=== PATIENT | female | born 1950 | race Caucasian/White ===

== ENCOUNTER 2017-06-21 08:48 | Day surgery (SDC) | payer MEDICARE ==
[2017-06-18 16:11] VITALS: BMI 34.9
[~2017-06-21 08:48] MED LIST: LACTATED RINGERS 1,000 ML IV SCH
[2017-06-21 09:04] VITALS: TEMP 98.9
[2017-06-21] MEDS ORDERED: LIDOCAINE 1% INJ 10MG/ML (20 ML MDV) ONE (10:06)
[2017-06-21] MEDS ORDERED: PROPOFOL 10 MG/ML 20 ML VIAL IV ONE (10:06)
[2017-06-21] MEDS ORDERED: LABETALOL 5 MG/ML VIAL MDV ONE (10:06)
--- NOTE | 2017-06-21 10:24 | P.GSHP ---
History of Present Illness H&P Date: 06/21/17 Chief Complaint: Screening colonoscopy This is a 67-year-old female who presents today for screening colonoscopy. Patient denies any significant GI complaints. She has strong family history of colon cancer. Past Medical History Past Medical History: Hyperlipidemia, Hypertension History of Any Multi-Drug Resistant Organisms: None Reported Past Surgical History: Cholecystectomy, Orthopedic Surgery Additional Past Surgical History / Comment(s): torn meniscus left, right knee arthroscopy Past Anesthesia/Blood Transfusion Reactions: Postoperative Nausea & Vomiting ( PONV) Smoking Status: Never smoker - Past Family History Mother Family Medical History: No Reported History Sister(s) Family Medical History: Deep Vein Thrombosis (DVT) Additional Family Medical History / Comment(s): heart problems Medications and Allergies Home Medications Medication Instructions Recorded Confirmed Type Citalopram Hydrobromide [CeleXA] 20 mg PO QAM 06/04/14 06/18/17 History Lisinopril [Prinivil] 20 mg PO QAM 06/04/14 06/18/17 History Simvastatin [Zocor] 20 mg PO 06/04/14 06/21/17 History Aspirin [Adult Low Dose Aspirin EC] 81 mg PO DAILY 03/01/16 06/18/17 History Atenolol [Tenormin] 25 mg PO QAM 03/01/16 06/18/17 History Vit A/Vit C/Vit E/Zinc/Copper 1 cap PO DAILY 03/01/16 06/21/17 History [ICAPS SOFTGEL] Allergies Allergy/AdvReac Type Severity Reaction Status Date / Time No Known Allergies Allergy Verified 06/21/17 09:05 Surgical - Exam Vital Signs Temp Pulse Resp BP Pulse Ox 98.9 F 110 H 16 135/85 100 06/21/17 09:03 06/21/17 09:03 06/21/17 09:03 06/21/17 09:03 06/21/17 09:03 - General well developed, no distress - Eyes PERRL - ENT normal pinna - Neck no masses - Respiratory normal expansion - Cardiovascular Rhythm: regular - Abdomen Abdomen: soft, non tender Assessment and Plan Assessment: We will perform screening colonoscopy.
--- NOTE | 2017-06-21 10:41 | P.OP ---
Date of Procedure: 06/21/17 Preoperative Diagnosis: Screening colonoscopy Postoperative Diagnosis: Diverticulosis Anesthesia: MAC Surgeon: Naveen King Pathology: none sent Condition: stable Disposition: PACU Description of Procedure: Placed on the endoscopy table lateral position. She received IV sedation. Digital rectal exam was performed which revealed no abnormalities.. The flexible colonoscope was then placed patient anus passed throughout the entire colon. The ileocecal valve was visualized. The cecum, ascending and transverse colon appeared normal. In the descending and sigmoid colon there was moderate diverticular changes. There is no evidence of diverticulitis. The scope was then brought back the rectum and this appeared normal. The scope was withdrawn for patient.
[2017-06-21 11:01] VITALS: BP 134/87; PULSE 80; RESP 18
== END 2017-06-21 11:32 | disposition home or self-care (01) ==
LOC: ORWHC2ENDO 08:48
PROVIDERS: ATTEND Surgery
DX: Z12.11 Encounter for screening for malignant neoplasm of colon (principal); K57.30 Diverticulosis of large intestine without perforation or abscess without bleeding; Z80.0 Family history of malignant neoplasm of digestive organs; E78.5 Hyperlipidemia, unspecified; I10 Essential (primary) hypertension; Z79.82 Long term (current) use of aspirin; Z79.899 Other long term (current) drug therapy
CPT/HCPCS: J2001; J2704; G0105

== ENCOUNTER → 2017-07-25 | Outpatient (CLI) | payer MEDICARE ==
--- NOTE | 2017-07-26 14:27 | MM ---
Reason for exam: screening (asymptomatic). Last mammogram was performed 1 year and 6 months ago. History: Patient is postmenopausal. Family history of breast cancer in grandmother at age 78 and breast cancer in aunt at age 55. US breast aspiration single LT of the left breast, February 09, 2016. Physical Findings: A clinical breast exam by your physician is recommended on an annual basis and results should be correlated with mammographic findings. MG 3D Screening Mammo W/Cad Bilateral CC, MLO, and XCCL view(s) were taken. Prior study comparison: January 20, 2016, left breast MG 3d work up w/cad LT. January 13, 2016, bilateral MG 3d screening mammo w/cad. The breast tissue is almost entirely fat. No significant changes when compared with prior studies. ASSESSMENT: Benign, BI-RAD 2 RECOMMENDATION: Routine screening mammogram of both breasts in 1 year.
== END | disposition home or self-care (01) ==
LOC: RADMAMWWP 14:16
PROVIDERS: ATTEND Family Medicine
DX: Z12.31 Encounter for screening mammogram for malignant neoplasm of breast (principal)
CPT/HCPCS: 77063; 77067

== ENCOUNTER → 2018-04-29 | Outpatient (CLI) | payer MEDICARE ==
[2018-04-29 18:21] LABS: Anion Gap 7.4 mmol/L (4.00-12.00); Carbon Dioxide 29.6 mmol/L (21.6-31.8); Potassium 3.9 mmol/L (3.5-5.5)
== END | disposition home or self-care (01) ==
LOC: LABWHC1 09:38
PROVIDERS: ATTEND Internal Medicine Interventional Cardiology
DX: I10 Essential (primary) hypertension (principal)
CPT/HCPCS: 36415; 80051; 82565; 84520

== ENCOUNTER 2018-08-07 13:46 | Emergency (ER) | payer MEDICARE, OTHER ==
[2018-08-07 13:56] VITALS: TEMP 98.3
--- NOTE | 2018-08-07 14:28 | ED ---
Skin/Abscess/FB HPI - General Chief complaint: Skin/Abscess/Foreign Body Stated complaint: Rash on face and hands, abscess on armpit Time Seen by Provider: 08/07/18 14:03 Source: patient, RN notes reviewed Mode of arrival: ambulatory Limitations: no limitations - History of Present Illness Initial comments: 68-year-old female presents emergency Department with multiple complaints. Patient primary complains of rash on her hands, abscess in her left axilla and rash of her face. She states the hands have been ongoing for last few months she has been trying different creams with no relief. Patient noticed a red rash her face that is slightly raised and template. Patient states that it does burn and itch at times. Patient also states that she has an open draining abscess of her left axilla. Patient reports no fever no chills no new medications. - Related Data Home Medications Medication Instructions Recorded Confirmed Citalopram Hydrobromide [CeleXA] 20 mg PO QAM 06/04/14 06/18/17 Lisinopril [Prinivil] 20 mg PO QAM 06/04/14 06/18/17 Simvastatin [Zocor] 20 mg PO HS 06/04/14 06/21/17 Aspirin [Adult Low Dose Aspirin EC] 81 mg PO DAILY 03/01/16 06/18/17 Atenolol [Tenormin] 25 mg PO QAM 03/01/16 06/18/17 Vit A/Vit C/Vit E/Zinc/Copper 1 cap PO DAILY 03/01/16 06/21/17 [ICAPS SOFTGEL] Hydrochlorothiazide [Hydrodiuril] 25 mg PO DAILY 08/07/18 08/07/18 Previous Rx's Medication Instructions Recorded Cephalexin [Keflex] 500 mg PO Q8HR #21 cap 08/07/18 Triamcinolone 0.1% Cream [Kenalog 1 applicatio TOPICAL BID #30 gram 08/07/18 0.1% Cream] metroNIDAZOLE 0.75% CREAM 1 applic TOPICAL BID #45 gm 08/07/18 [Metrocream] Allergies Allergy/AdvReac Type Severity Reaction Status Date / Time No Known Allergies Allergy Verified 08/07/18 13:56 Review of Systems ROS Statement: Those systems with pertinent positive or pertinent negative responses have been documented in the HPI. ROS Other: All systems not noted in ROS Statement are negative. Past Medical History Past Medical History: Hyperlipidemia, Hypertension History of Any Multi-Drug Resistant Organisms: MRSA Date of last positivie culture/infection: 10/29/17 MDRO Source:: ARM Past Surgical History: Cholecystectomy, Orthopedic Surgery Additional Past Surgical History / Comment(s): torn meniscus left, right knee arthroscopy Past Anesthesia/Blood Transfusion Reactions: Postoperative Nausea & Vomiting (PONV) Past Psychological History: Depression Smoking Status: Never smoker - Past Family History Sister(s) Family Medical History: Pulmonary Embolus Mother Family Medical History: No Reported History General Exam Limitations: no limitations General appearance: alert, in no apparent distress Head exam: Present: atraumatic, normocephalic, normal inspection Eye exam: Present: normal appearance, PERRL, EOMI. Absent: scleral icterus, conjunctival injection, periorbital swelling ENT exam: Present: normal exam, normal oropharynx, mucous membranes moist, TM's normal bilaterally Neck exam: Present: normal inspection, full ROM. Absent: tenderness, meningismus, lymphadenopathy Respiratory exam: Present: normal lung sounds bilaterally. Absent: respiratory distress, wheezes, rales, rhonchi, stridor Cardiovascular Exam: Present: regular rate, normal rhythm, normal heart sounds. Absent: systolic murmur, diastolic murmur, rubs, gallop, clicks Skin exam: Present: warm, dry, intact, normal color, rash (Left axilla there is a 1 cm open draining abscess, mild erythema surrounding, mild tenderness. Neurovascular intact left arm. States there is a faint erythematous slightly papular rash primarily over the cheeks, nasal region. Bilateral hands really dry patchy rash on the dorsal aspect.) Course Vital Signs 08/07/18 13:54 Temperature 98.3 F Pulse Rate 73 Respiratory 16 Rate Blood Pressure 123/78 O2 Sat by Pulse 95 Oximetry Medical Decision Making - Medical Decision Making Patient is 68-year-old female For rashes, abscess. Patient will be started Keflex for abscess to her left axilla to apply warm compresses. Patient has dermatitis in her hands which will be started on Kenalog cream. Patient also has evidence of rosacea. Patient was started on metronidazole cream. Patient will follow-up with dermatology for recheck and return for any worsening symptoms. Disposition Clinical Impression: Atopic dermatitis, Rosacea, Abscess of left axilla Disposition: HOME SELF-CARE Condition: Stable Instructions (If sedation given, give patient instructions): Abscess (ED) Additional Instructions: Please return to the Emergency Department if symptoms worsen or any other concerns. Prescriptions: Cephalexin [Keflex] 500 mg PO Q8HR #21 cap Triamcinolone 0.1% Cream [Kenalog 0.1% Cream] 1 applicatio TOPICAL BID #30 gram metroNIDAZOLE 0.75% CREAM [Metrocream] 1 applic TOPICAL BID #45 gm Is patient prescribed a controlled substance at d/c from ED?: No Referrals: Emmanuel Benavides DO [Primary Care Provider] - 1-2 days Time of Disposition: 14:28
[2018-08-07 15:05] VITALS: BP 114/62; PULSE 61; RESP 18
== END 2018-08-07 15:00 | disposition home or self-care (01) ==
LOC: EC 13:46
DX: L20.9 Atopic dermatitis, unspecified (principal); L71.9 Rosacea, unspecified; L02.412 Cutaneous abscess of left axilla; E78.5 Hyperlipidemia, unspecified; I10 Essential (primary) hypertension; F32.9 Major depressive disorder, single episode, unspecified; Z79.82 Long term (current) use of aspirin; Z79.899 Other long term (current) drug therapy; Z86.14 Personal history of Methicillin resistant Staphylococcus aureus infection
CPT/HCPCS: 99282

== ENCOUNTER → 2018-08-28 | Outpatient (CLI) | payer MEDICARE, OTHER ==
--- NOTE | 2018-08-29 12:05 | MM ---
Reason for exam: screening (asymptomatic). Last mammogram was performed 1 year and 1 month ago. History: Patient is postmenopausal. Family history of breast cancer in grandmother at age 78 and breast cancer in aunt at age 55. US breast aspiration single LT of the left breast, February 09, 2016. Physical Findings: A clinical breast exam by your physician is recommended on an annual basis and results should be correlated with mammographic findings. MG 3D Screening Mammo W/Cad Bilateral CC, MLO, and XCCL view(s) were taken. Prior study comparison: July 25, 2017, bilateral MG 3d screening mammo w/cad. January 20, 2016, left breast MG 3d work up w/cad LT. There are scattered fibroglandular densities. Stable benign calcifications. There is no discrete abnormality. No significant changes when compared with prior studies. ASSESSMENT: Benign, BI-RAD 2 RECOMMENDATION: Routine screening mammogram of both breasts in 1 year.
== END ==
LOC: RADMAMWWP 14:47
PROVIDERS: ATTEND Family Medicine
DX: Z12.31 Encounter for screening mammogram for malignant neoplasm of breast (principal)
CPT/HCPCS: 77063; 77067

== ENCOUNTER → 2019-03-21 | Outpatient (CLI) | payer MEDICARE, OTHER ==
--- NOTE | 2019-03-21 11:50 | XR ---
EXAMINATION TYPE: XR foot limited RT DATE OF EXAM: 03/21/2019 CLINICAL HISTORY: Right foot pain TECHNIQUE: Frontal, lateral, and oblique images of the right foot are obtained. COMPARISON: None FINDINGS: There is no acute fracture/dislocation evident in the right foot. The joint spaces in the right foot appear aligned with mild narrowing of the distal interphalangeal joints and minimal bony productive change. The overlying soft tissue appears unremarkable. Small Achilles and plantar enthes ophytes are seen. IMPRESSION: 1. No acute fracture or dislocation in the right foot. 2. Small Achilles and plantar heel spurs. 3. Mild forefoot arthropathy.
== END | disposition home or self-care (01) ==
LOC: RADXRMAIN 11:23
PROVIDERS: ATTEND Nurse Practitioner Family
DX: M77.31 Calcaneal spur, right foot (principal); M19.072 Primary osteoarthritis, left ankle and foot

== ENCOUNTER 2019-06-13 10:58 | Emergency (ER) | payer MEDICARE, OTHER ==
[2019-06-13 11:07] VITALS: RESP 16; TEMP 97.7
[2019-06-13] MEDS ORDERED: KETOROLAC 30 MG/ML 1 ML VIAL IM STA (11:37)
--- NOTE | 2019-06-13 11:40 | ED ---
Lower Extremity Injury HPI - General Chief Complaint: Extremity Injury, Lower Stated Complaint: Fall/knee injury Time Seen by Provider: 06/13/19 11:16 Source: patient Mode of arrival: wheelchair Limitations: no limitations - History of Present Illness Initial Comments: Patient is 69-year-old female presenting to the emergency department with a chief complaint of left knee pain. Patient reports she was on a step stool in order to pick something up off the shelf. Patient reports she stepped back without knowing and she hyperextended her left knee. Patient reports pain with ambulation. Patient reports limited range of motion with flexion and states the only alleviating factor is keeping the leg fully extended. Patient denies taking any medication to alleviate the symptoms. Patient does have osteoarthritis and bilateral knees. Denies any numbness or tingling. - Related Data Home Medications Medication Instructions Recorded Confirmed Citalopram Hydrobromide [CeleXA] 20 mg PO QAM 06/04/14 08/07/18 Lisinopril [Prinivil] 20 mg PO QAM 06/04/14 08/07/18 Simvastatin [Zocor] 20 mg PO HS 06/04/14 08/07/18 Aspirin [Adult Low Dose Aspirin EC] 81 mg PO HS 03/01/16 08/07/18 Atenolol [Tenormin] 25 mg PO QAM 03/01/16 08/07/18 Vit A/Vit C/Vit E/Zinc/Copper 1 cap PO BID 03/01/16 08/07/18 [ICAPS SOFTGEL] Hydrochlorothiazide [Hydrodiuril] 25 mg PO DAILY 08/07/18 08/07/18 Previous Rx's Medication Instructions Recorded Cephalexin [Keflex] 500 mg PO Q8HR #21 cap 08/07/18 Triamcinolone 0.1% Cream [Kenalog 1 applicatio TOPICAL BID #30 gram 08/07/18 0.1% Cream] metroNIDAZOLE 0.75% CREAM 1 applic TOPICAL BID #45 gm 08/07/18 [Metrocream] Allergies Allergy/AdvReac Type Severity Reaction Status Date / Time No Known Allergies Allergy Verified 08/07/18 14:24 Review of Systems ROS Statement: Those systems with pertinent positive or pertinent negative responses have been documented in the HPI. ROS Other: All systems not noted in ROS Statement are negative. Past Medical History Past Medical History: Hyperlipidemia, Hypertension History of Any Multi-Drug Resistant Organisms: MRSA Date of last positivie culture/infection: 03/21/19 MDRO Source:: LT AXILLA Past Surgical History: Cholecystectomy, Orthopedic Surgery Additional Past Surgical History / Comment(s): torn meniscus left, right knee arthroscopy Past Anesthesia/Blood Transfusion Reactions: Postoperative Nausea & Vomiting (PONV) Past Psychological History: Depression Smoking Status: Never smoker Past Alcohol Use History: None Reported Past Drug Use History: None Reported - Past Family History Sister(s) Family Medical History: Pulmonary Embolus Mother Family Medical History: No Reported History General Exam Limitations: no limitations General appearance: alert, in no apparent distress Head exam: Present: atraumatic, normocephalic, normal inspection Eye exam: Present: normal appearance, PERRL, EOMI Pupils: Present: normal accommodation ENT exam: Present: normal exam, mucous membranes moist Neck exam: Present: normal inspection, full ROM Respiratory exam: Present: normal lung sounds bilaterally Cardiovascular Exam: Present: regular rate, normal rhythm, normal heart sounds Extremities exam: Present: normal inspection (No obvious trauma to the left knee. No surrounding erythema.), tenderness (Tenderness along the medial aspect of the left knee and the posterior aspect as well.), normal capillary refill, joint swelling (Mild left knee swelling), other. Absent: full ROM (Limited range of motion with knee flexion.), calf tenderness (Negative Homans) Back exam: Present: normal inspection, full ROM Neurological exam: Present: alert, oriented X3 Psychiatric exam: Present: normal affect, normal mood Skin exam: Present: warm, dry, intact, normal color Course Vital Signs 06/13/19 11:04 Temperature 97.7 F Pulse Rate 102 H Respiratory 16 Rate Blood Pressure 118/86 O2 Sat by Pulse 98 Oximetry Medical Decision Making - Medical Decision Making Patient is 69-year-old female presenting to the emergency department with chief complaint of left knee pain. Patient stepped back from a stepping stool causing hyperextension of the left knee. Patient does report pain and some swelling. On exam patient does have negative anterior drawer test and positive Isrrael with medial rotation. Patient does have pain with adulation limited range of motion with flexion. X-ray shows no acute fractures dislocations but does show moderate tricompartmental arthropathy especially evident the medial compartment. Small suprapatellar effusion evident as well. Patient already sees Dr. Regalado and would like to go see him. Knee extended applied. Patient will follow-up accordingly. Patient given Tylenol 3 starter pack for pain control. She was advised about the possible side effects of the medication. Patient advised to keep the leg elevated and apply ice compress to minimize symptoms. Strict return parameters were thoroughly discussed. Patient was understanding and agreeable. Case discussed with physician. Disposition Clinical Impression: Joint effusion of knee, Left knee pain, Left knee sprain Disposition: HOME SELF-CARE Condition: Stable Instructions (If sedation given, give patient instructions): Knee Pain (ED), Knee Sprain (ED) Additional Instructions: Please follow-up with your store specialist. Apply ice compress an alternate between Tylenol and Motrin for pain control. Keep the foot elevated to minimize symptoms. Return to emergency department if symptoms worsen. Is patient prescribed a controlled substance at d/c from ED?: No Referrals: Emmanuel Benavides DO [Primary Care Provider] - 1-2 days Time of Disposition: 12:40
--- NOTE | 2019-06-13 12:32 | XR ---
EXAMINATION TYPE: XR knee complete LT DATE OF EXAM: 06/13/2019 CLINICAL HISTORY: Left knee pain after fall TECHNIQUE: Three views of the left knee are obtained. COMPARISON: None. FINDINGS: There is no acute fracture/dislocation evident in left knee. The tri-compartment joint sp aces appear aligned with protuberant marginal osteophytes and medial compartment joint space narrowin g as well as patellofemoral compartment joint space narrowing. Small suprapatellar joint effusion is seen. There is diffuse osseous demineralization. The overlying soft tissue appears unremarkable. IMPRESSION: 1. No acute fracture or dislocation in the left knee. 2. Moderate tricompartmental arthropathy most severe in the medial compartment. 3. Diffuse osseous demineralization. 4. Small suprapatellar joint effusion.
[2019-06-13] MEDS ORDERED: ACET/COD 300 MG/30 MG STARTER PACK 6 TAB BTL PO STA (12:42)
[2019-06-13 12:58] VITALS: BP 112/81; PULSE 97
== END 2019-06-13 12:57 | disposition home or self-care (01) ==
LOC: EC 10:58
DX: S83.92XA Sprain of unspecified site of left knee, initial encounter (principal); M17.0 Bilateral primary osteoarthritis of knee; F32.9 Major depressive disorder, single episode, unspecified; E78.5 Hyperlipidemia, unspecified; I10 Essential (primary) hypertension; Z79.82 Long term (current) use of aspirin; Z79.899 Other long term (current) drug therapy; Z98.890 Other specified postprocedural states; Z86.14 Personal history of Methicillin resistant Staphylococcus aureus infection; W17.89XA Other fall from one level to another, initial encounter; Y93.89 Activity, other specified
CPT/HCPCS: 73562; 96372; 99283; L1830; J1885

== ENCOUNTER → 2019-06-24 | Outpatient (CLI) | payer MEDICARE, OTHER ==
--- NOTE | 2019-06-24 13:16 | MR ---
EXAMINATION TYPE: MR knee LT wo con DATE OF EXAM: 06/24/2019 COMPARISON: None HISTORY: Lt knee pain, fall 2 weeks ago TECHNIQUE: Multiplanar, multisequence images of the knee is performed without IV contrast. FINDINGS: MEDIAL MENISCUS: Tear anterior horn medial meniscus with displacement seen medially. Posterior horn i s intact. LATERAL MENISCUS: Anterior and posterior horns are intact without tear. CRUCIATE LIGAMENTS: There is increased signal and thinning of the ACL which may reflect partial ACL t ear. No evidence for ACL rupture. PCL is intact. COLLATERAL LIGAMENTS: The medial collateral ligament and lateral collateral ligament complex are inta ct and unremarkable. EXTENSOR MECHANISM: Visualized quadriceps and patellar tendons are intact. EFFUSION: Small suprapatellar joint effusion. POPLITEAL CYST: Mckeon's cyst measuring 4.9 cm in craniocaudal dimension. TRICOMPARTMENT SPACES: Moderate tricompartmental degenerative narrowing with associated spur formatio n. CARTILAGE: Intact BONE MARROW SIGNAL: No focal abnormal marrow signal is appreciated. OTHER: No additional significant abnormality is appreciated. IMPRESSION: 1. Tear and displacement anterior horn medial meniscus. 2. I cannot exclude partial tear ACL.
== END | disposition home or self-care (01) ==
LOC: RADMRIMAIN 11:36
PROVIDERS: ATTEND Orthopaedic Surgery
DX: S83.242A Other tear of medial meniscus, current injury, left knee, initial encounter (principal)

== ENCOUNTER → 2019-06-27 | Outpatient (CLI) | payer MEDICARE, OTHER ==
[2019-06-27 12:48] LABS: Basophils % (A) 1 %; Eosinophils # (A) 0.1 k/uL (0-0.7); Eosinophils % (A) 2 %; HCT 44.4 % (34.0-46.0); HGB 14.6 gm/dL (11.4-16.0); Lymphocytes # (A) 1.3 k/uL (1.0-4.8); Lymphocytes % (A) 24 %; MCH 30.8 pg (25.0-35.0); MCHC 32.9 g/dL (31.0-37.0); MCV 93.7 fL (80.0-100.0); Mean Platelet Volume 7.5; Monocytes # (A) 0.3 k/uL (0-1.0); Monocytes % (A) 6 %; Neutrophils # (A) 3.4 k/uL (1.3-7.7); Neutrophils % (A) 64 %; Platelet Count 327 k/uL (150-450); RBC 4.74 m/uL (3.80-5.40); RDW 12.3 % (11.5-15.5); WBC 5.2 k/uL (3.8-10.6)
[2019-06-27 13:07] LABS: Potassium 3.6 mmol/L (3.5-5.1)
== END | disposition home or self-care (01) ==
LOC: LABPAT 12:23
PROVIDERS: ATTEND Orthopaedic Surgery
DX: Z01.818 Encounter for other preprocedural examination (principal); Z01.812 Encounter for preprocedural laboratory examination; M23.92 Unspecified internal derangement of left knee
CPT/HCPCS: 36415; 80051; 85025; 93005

== ENCOUNTER 2019-07-17 13:29 | Day surgery (SDC) | payer MEDICARE, OTHER ==
[2019-07-15 15:36] VITALS: BMI 34.9
--- NOTE | 2019-07-16 14:27 | HP ---
HISTORY AND PHYSICAL DATE OF SURGERY: 07/17/2019 Marisol Arciniega is a 69-year-old patient seen with progressive left knee pain. We discussed options for treatment. She elected to proceed with arthroscopy. Consent was obtained. PAST MEDICAL HISTORY: Hypertension, hyperlipidemia. PAST SURGICAL HISTORY: Knee arthroscopy. DAILY MEDICATIONS: Aspirin, Celexa, lisinopril, Simvastatin. ALLERGIES: None. SOCIAL HISTORY: She denies tobacco use. PHYSICAL EVALUATION OF THE LEFT KNEE: Her range of motion is 0 to 90. There is a mild to moderate effusion present. She is tender along the medial and lateral joint lines. Positive medial Isrrael's. Ligaments are stable. Hip rotation without pain. Distal neurovascular exam is intact. RADIOGRAPHS: Left knee radiographs revealed moderate tricompartment osteoarthritis. Left knee MRI revealed medial meniscal tear, osteoarthritis, joint effusion. IMPRESSION: 1. Internal derangement of the left knee with medial meniscal tear. 2. Left knee osteoarthritis. 3. Hypertension. 4. Hyperlipidemia. PLAN: Left knee arthroscopy with partial meniscectomy, partial synovectomy, and debridement. MMODL / IJN: [id number] /
[~2019-07-17 13:29] MED LIST changes: +DEXAMETHASONE SOD PHOSPHATE 10 MG/ML 1 ML VIAL IV ONE; +LIDOCAINE 1% (10MG/ML) FOR IV START INTRADERMA PRN; +MIDAZOLAM 2 MG/2 ML VIAL IV PRN; +fentaNYL (PF) 50 MCG/ML 2 ML AMP IV PRN; +fentaNYL (PF) 50 MCG/ML 2 ML AMP IVP PRN
[2019-07-17 14:04] VITALS: TEMP 97.8
[2019-07-17] MEDS ORDERED: ONDANSETRON 4 MG/2 ML VIAL IVP ONE (14:05)
[2019-07-17] MEDS ORDERED: fentaNYL (PF) 50 MCG/ML 2 ML AMP ONE (16:56)
[2019-07-17] MEDS ORDERED: MIDAZOLAM 2 MG/2 ML VIAL ONE (16:56)
[2019-07-17] MEDS ORDERED: PROPOFOL 10 MG/ML 20 ML VIAL IV ONE (16:56)
[2019-07-17] MEDS ORDERED: LIDOCAINE 1% INJ 10MG/ML (20 ML MDV) ONE (16:56)
[2019-07-17] MEDS ORDERED: BUPIVACAINE (PF) 0.25% 30 ML VIAL INTRAARTIC ONE (16:58)
--- NOTE | 2019-07-17 17:43 | P.OP ---
Date of Procedure: 07/17/19 Preoperative Diagnosis: Internal derangement left knee Postoperative Diagnosis: 1. Tear medial meniscus left knee 2. 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 Grade 3/4 chondromalacia lateral femoral condyle left knee 3. 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 Reactive synovitis medial, lateral and suprapatellar compartments left knee Procedure(s) Performed: 1. Arthroscopic partial medial meniscectomy left knee 2. Arthroscopic chondroplasty medial femoral condyle left knee 3. Arthroscopic chondroplasty lateral femoral condyle left knee 4. Arthroscopic chondroplasty femoral sulcus left knee 5. Arthroscopic partial synovectomy medial, lateral and suprapatellar compartments left knee Anesthesia: NIKA, local Surgeon: Dixon Regalado Estimated Blood Loss (ml): 7 Pathology: none sent Condition: stable Disposition: PACU Indications for Procedure: 69-year-old patient seen with progressive left knee pain. After having treatment options discussed, she elected post with arthroscopy. Operative Findings: See description of procedure Description of Procedure: Patient was taken to the operative suite. Patient underwent a general anesthetic by the department of anesthesia. Patient was given preoperative antibiotics. The left lower extremity was placed in a well-padded arthroscopic leg mendoza. The left leg was prepped and draped in the normal sterile orthopedic fashion. A lateral parapatellar and suprapatellar incision was made. Trochars were inserted. Arthroscopy was initiated. Suprapatellar pouch revealed diffuse thick reactive synovitis. The patellofemoral joint appeared to articulate congruently. There was grade 3/4 chondromalacia of the femoral sulcus and grade 3 chondromalacia changes of the patella.. The scope was guided into the medial gutter. No loose bodies or plica were identified. The scope was then guided into the medial compartment. A medial parapatellar incision was made. Trocar inserted followed by probe. There was a radial tear of the pos terior medial meniscus. There were grade 4 chondromalacia changes of both the medial femoral condyle and tibial plateau. There was some osteochondral tears involving the femoral condyle. There was thick reactive synovitis anteriorly. I performed a partial medial meniscectomy. I performed a chondroplasty of the medial femoral condyle. I performed a partial synovectomy decompressing the thick reactive synovitis. The residual meniscus was stable. There was good decompression of synovitis. The residual osteochondral surface of the medial femoral condyle was stable. Scope and probe were then guided into the intercondylar notch. Cruciates were identified, probed and found to be stable. The scope and probe were then guided into lateral compartment. The lateral femoral condyle revealed a central area of grade 3/4 chondromalacia with some peripheral osteochondral tears. There was thick reactive synovitis anteriorly. There was some mild fraying of the midbody lateral meniscus. I performed a chondroplasty of the lateral femoral condyle. I debrided that mild fraying of the meniscus. I performed a partial synovectomy decompressing reactive synovitis. The residual osteochondral surface was stable. There was good decompression of synovitis. The scope was in guided back into the suprapatellar compartment. I introduced a motorized shaver into the suprapatellar compartment. I debrided some piecemeal fragments of meniscus I encountered. I performed a chondroplasty of the femoral sulcus. I performed a partial synovectomy decompressing reactive synovitis. The shaver was removed. I took one more look on the entire knee, no residual debris. Instruments were now removed from the joint. The joint was infiltrated with .25% Marcaine. Steri- Strips were applied to the portal sites. Sterile dressings were applied. The patient was placed into a XOCHITL hose. No tourniquet was utilized. The patient was awakened, transferred to a bed and taken to recovery stable satisfactory condition.
[2019-07-17] MEDS ORDERED: ALBUTEROL NEBULIZED 1.25 MG/3 ML INHALATION ONE (17:54)
[2019-07-17] MEDS ORDERED: METOPROLOL TARTRATE 5 MG/5 ML VIAL IVP ONE ×2 (18:15→18:20)
[2019-07-17] MEDS ORDERED: LACTATED RINGERS 1,000 ML IV ONE (18:28)
[2019-07-17 18:57] VITALS: PULSE 98; RESP 20
[2019-07-17 18:58] VITALS: BP 122/77
== END 2019-07-17 19:09 | disposition home or self-care (01) ==
LOC: OR 13:29
PROVIDERS: ATTEND Orthopaedic Surgery
DX: M23.322 Other meniscus derangements, posterior horn of medial meniscus, left knee (principal); M22.42 Chondromalacia patellae, left knee; M17.12 Unilateral primary osteoarthritis, left knee; M65.862 Other synovitis and tenosynovitis, left lower leg; I10 Essential (primary) hypertension; E78.5 Hyperlipidemia, unspecified; Z79.82 Long term (current) use of aspirin; Z79.899 Other long term (current) drug therapy
CPT/HCPCS: 29881; J2250; J1100; J0690; J2405; J2001; J3010; J2704

== ENCOUNTER → 2021-05-19 | Outpatient (CLI) | payer MEDICARE, OTHER ==
--- NOTE | 2021-05-23 09:31 | MM ---
Reason for exam: screening (asymptomatic). Last mammogram was performed 2 years and 9 months ago. History: Patient is postmenopausal. Family history of breast cancer in grandmother at age 78 and breast cancer in aunt at age 55. US breast aspiration single LT of the left breast, February 09, 2016. Physical Findings: A clinical breast exam by your physician is recommended on an annual basis and results should be correlated with mammographic findings. MG 3D Screening Mammo W/Cad Bilateral CC and MLO view(s) were taken. Prior study comparison: August 28, 2018, bilateral MG 3d screening mammo w/cad. July 25, 2017, bilateral MG 3d screening mammo w/cad. There are scattered fibroglandular densities. Scattered benign bilateral oil cyst calcifications. No significant changes when compared with prior studies. ASSESSMENT: Benign, BI-RAD 2 RECOMMENDATION: Routine screening mammogram of both breasts in 1 year.
== END | disposition home or self-care (01) ==
LOC: RADMAMWWP 09:49
PROVIDERS: ATTEND Family Medicine
DX: Z12.31 Encounter for screening mammogram for malignant neoplasm of breast (principal); Z80.3 Family history of malignant neoplasm of breast; Z78.0 Asymptomatic menopausal state
CPT/HCPCS: 77063; 77067

== ENCOUNTER → 2021-05-27 | Outpatient (CLI) | payer MEDICARE, OTHER ==
[2021-05-27 15:19] LABS: ALT 14 U/L (8-44); AST 18 U/L (13-35); Chol/HDL Ratio 2.03 Ratio; VLDL Calculation 19.44 mg/dL (5.00-40.00)
== END | disposition home or self-care (01) ==
LOC: LABWHC1 09:11
PROVIDERS: ATTEND Internal Medicine Interventional Cardiology
DX: E78.2 Mixed hyperlipidemia (principal)
CPT/HCPCS: 36415; 80061; 84450; 84460

== ENCOUNTER 2021-07-26 09:07 | Emergency (ER) | payer MEDICARE, OTHER ==
[2021-07-26 09:22] VITALS: BP 153/81; PULSE 88; RESP 18; TEMP 98.4
[2021-07-26] MEDS ORDERED: CIPROFLOXACIN-DEXAMETH 0.3-0.1% DROPS 7.5 ML BTL LEFT EAR STA (11:36)
--- NOTE | 2021-07-26 11:49 | ED ---
ENT HPI - General Chief complaint: ENT Stated complaint: Lt Ear Pain/Swelling Time Seen by Provider: 07/26/21 11:20 Source: patient Mode of arrival: ambulatory Limitations: no limitations - History of Present Illness Initial comments: [id number] female with a history of hypertension presents with chief complaint of left ear pain. For about 4 days the ear has been becoming increasingly more swollen and painful. She notes tenderness of the tragus and pain with eating and opening and closing the jaw. She wears hearing aids and is unable to fit her left hearing aid in the ear due to the swelling and pain. She has noticed some clear drainage occasionally. Tylenol helps decrease the pain. He denies purulent discharge, history of diabetes, redness and swelling behind the ear, fever, chills, headache, vision changes, nausea, vomiting, chest pain, shortness of breath, abdominal pain. MD complaint: ear pain - Related Data Home Medications Medication Instructions Recorded Confirmed Citalopram Hydrobromide [CeleXA] 20 mg PO QAM 06/04/14 07/15/19 Simvastatin [Zocor] 20 mg PO HS 06/04/14 07/15/19 lisinopriL [Prinivil] 20 mg PO QAM 06/04/14 07/15/19 Aspirin [Adult Low Dose Aspirin EC] 81 mg PO HS 03/01/16 07/15/19 Vit A/Vit C/Vit E/Zinc/Copper 1 cap PO BID 03/01/16 07/15/19 [ICAPS SOFTGEL] hydroCHLOROthiazide [Hydrodiuril] 25 mg PO DAILY 08/07/18 07/15/19 Previous Rx's Medication Instructions Recorded HYDROcodone/APAP 5-325MG [[place] 1 tab PO Q6HR PRN 7 Days #28 tab 07/17/19 5-325] Ciprofloxacin-Dexameth [Ciprodex 4 drops LEFT EAR BID 10 Days #7.5 07/26/21 Otic Susp] ml Allergies Allergy/AdvReac Type Severity Reaction Status Date / Time No Known Allergies Allergy Verified 07/26/21 09:22 Review of Systems ROS Statement: Those systems with pertinent positive or pertinent negative responses have been documented in the HPI. ROS Other: All systems not noted in ROS Statement are negative. Past Medical History Past Medical History: Hyperlipidemia, Hypertension History of Any Multi-Drug Resistant Organisms: MRSA Date of last positivie culture/infection: 03/21/19 MDRO Source:: LT AXILLA Past Surgical History: Cholecystectomy, Orthopedic Surgery Additional Past Surgical History / Comment(s): torn meniscus left, right knee arthroscopy Past Anesthesia/Blood Transfusion Reactions: Postoperative Nausea & Vomiting (PONV) Past Psychological History: Depression Smoking Status: Never smoker Past Alcohol Use History: None Reported - Past Family History Sister(s) Family Medical History: Pulmonary Embolus Mother Family Medical History: Coronary Artery Disease (CAD) General Exam Limitations: no limitations General appearance: alert, in no apparent distress Head exam: Present: atraumatic, normocephalic, normal inspection Eye exam: Present: normal appearance, PERRL, EOMI. Absent: scleral icterus, conjunctival injection, periorbital swelling ENT exam: Present: mucous membranes moist Expanded TM/Canal exam: Canal Tenderness: Left TM (Right tympanic membrane is WNL. Left tympanic membrane is not visualized due to swelling. There is tragal tenderness and tenderness when inserting the otoscope. No mastoid tenderness or erythema. Discharge noted) Mouth exam: Present: other (Pain radiating to the ear with open and close of jaw). Absent: trismus Neck exam: Present: normal inspection. Absent: tenderness, lymphadenopathy Respiratory exam: Present: normal lung sounds bilaterally. Absent: respiratory distress, wheezes, rales, rhonchi, stridor Cardiovascular Exam: Present: regular rate, normal rhythm, normal heart sounds. Absent: systolic murmur, diastolic murmur, rubs, gallop, clicks Neurological exam: Present: alert, oriented X3, CN II-XII intact Psychiatric exam: Present: normal affect, normal mood Skin exam: Present: warm, dry, intact, normal color. Absent: rash Course Vital Signs 07/26/21 09:18 Temperature 98.4 F Pulse Rate 88 Respiratory 18 Rate Blood Pressure 153/81 O2 Sat by Pulse 95 Oximetry Medical Decision Making - Medical Decision Making Patient is a 71-year-old female sent in with a chief complaint of left ear pain. Began 4 days ago and ear has become increasingly more painful and swollen. Unable to wear her hearing aid due to the pain. She does not have a history of diabetes. On exam the ear canal and tragus are tender for palpation and insertion of the otoscope. Tympanic membrane is not visualized due to swelling. There is no mastoid erythema or tenderness. An ear wick was inserted and patient was given first dose of Ciprodex drops here in the ER. Prescribed Ciprodex drops 4 drops 2 times a day for 10 days, sent to pharmacy on file. May take Motrin and Tylenol as needed for pain control. Follow-up with PCP in one to 2 days. Educated on return parameters. Report back to ER with worsening symptoms or new onset alarm symptoms. Answered all questions. Patient conveyed verbal understanding and agreed to the plan. My attending is Dr. Dos Santos. Disposition Clinical Impression: Otitis externa Disposition: HOME SELF-CARE Condition: Good Instructions (If sedation given, give patient instructions): Swimmer's Ear (ED), Earache (ED) Additional Instructions: Take medication as prescribed. Follow-up with ENT if needed. With PCP in one to 2 days. Take Motrin and Tylenol as needed for pain relief. Report back to ER with worsening symptoms or new onset alarming symptoms. Prescriptions: Ciprofloxacin-Dexameth [Ciprodex Otic Susp] 4 drops LEFT EAR BID 10 Days #7.5 ml Is patient prescribed a controlled substance at d/c from ED?: No Referrals: Emmanuel Benavides DO [Primary Care Provider] - 1-2 days Jessee Escalante MD [STAFF PHYSICIAN] - 1-2 days Time of Disposition: 12:04
== END 2021-07-26 12:05 | disposition home or self-care (01) ==
LOC: EC 09:07
DX: H60.92 Unspecified otitis externa, left ear (principal); I10 Essential (primary) hypertension; E78.5 Hyperlipidemia, unspecified; F32.A Depression, unspecified; Z79.82 Long term (current) use of aspirin; Z79.899 Other long term (current) drug therapy
CPT/HCPCS: 99282

== ENCOUNTER → 2022-02-13 | Outpatient (CLI) | payer MEDICARE, OTHER | END | disposition home or self-care (01) | LOC: LABWHC1 12:12 | PROVIDERS: ATTEND Orthopaedic Surgery | DX: Z01.812 Encounter for preprocedural laboratory examination (principal); Z22.322 Carrier or suspected carrier of Methicillin resistant Staphylococcus aureus; M17.11 Unilateral primary osteoarthritis, right knee | CPT/HCPCS: 87070 ==

== ENCOUNTER 2022-03-20 08:03 | Day surgery (SDC) | payer MEDICARE, OTHER ==
[2022-03-16 13:48] VITALS: BMI 34.2
--- NOTE | 2022-03-19 12:50 | HP ---
HISTORY AND PHYSICAL DATE OF SCHEDULED SURGERY: 03/20/2022. HISTORY OF PRESENT ILLNESS: Marisol Arciniega is a 72-year-old patient seen with symptomatic right knee osteoarthritis. We discussed options for treatment. She elected to proceed with right total knee arthroplasty. Consent was obtained. Medical clearance was provided by Dr. Emmanuel Benavides. PAST MEDICAL HISTORY: Hypertension, hyperlipidemia. PAST SURGICAL HISTORY: Knee arthroscopy. DAILY MEDICATIONS: 1. Celexa. 2. Lisinopril. 3. Simvastatin. ALLERGIES: None. SOCIAL HISTORY: She denies tobacco use. PHYSICAL EVALUATION OF THE RIGHT KNEE: Range of motion is -4/5 to 85. Mild effusion. Tenderness medial joint line. Crepitus along the medial patellofemoral compartments with range of motion. Pain with patellofemoral compression. Ligaments stable. Hip rotation without pain. Distal neurovascular exam intact. RADIOGRAPHS: Right knee radiographs reveal severe osteoarthritic changes. IMPRESSION: 1. Right knee osteoarthritis. 2. Hypertension. 3. Hyperlipidemia. PLAN: Right total knee arthroplasty. MMODL / IJN: [id number] /
[~2022-03-20 08:03] MED LIST changes: +ACETAMINOPHEN TAB 500 MG TAB PO PRN; -DEXAMETHASONE SOD PHOSPHATE 10 MG/ML 1 ML VIAL IV ONE; -LACTATED RINGERS 1,000 ML IV SCH; -LIDOCAINE 1% (10MG/ML) FOR IV START INTRADERMA PRN; +MELOXICAM 7.5 MG TAB PO PRN; -MIDAZOLAM 2 MG/2 ML VIAL IV PRN; +TRANEXAMIC ACID IN NACL,ISO-OS 1,000 MG in SALINE 1 100ML.BAG IVPB PRN; +VANCOMYCIN 1,500 MG in SODIUM CHLORIDE 0.9% 500 ML 500 ML IVPB PRN; -fentaNYL (PF) 50 MCG/ML 2 ML AMP IV PRN; -fentaNYL (PF) 50 MCG/ML 2 ML AMP IVP PRN
[2022-03-20] MEDS ORDERED: ONDANSETRON 4 MG/2 ML VIAL ONE (08:50)
[2022-03-20] MEDS ORDERED: ONDANSETRON 4 MG/2 ML VIAL IVP ONE (09:05)
[2022-03-20] MEDS ORDERED: DEXAMETHASONE SOD PHOSPHATE 4 MG/ML 1 ML VIAL IVP ONE (09:06)
[2022-03-20] MEDS ORDERED: LACTATED RINGERS 1,000 ML IV ONE ×2 (09:10→11:30)
[2022-03-20] MEDS ORDERED: MIDAZOLAM 2 MG/2 ML VIAL IVP ONE (09:16)
--- NOTE | 2022-03-20 09:37 | P.ANPRN ---
Procedure Note - Anesthesia - Nerve Block Performed Right Adductor Canal Infusion Time Out Performed: Yes Date of Procedure: 03/20/22 Procedure Start Time: :15 Procedure Stop Time: :24 Location of Patient: PreOp Indication: Requested by Surgeon Sedation Type: Sedate with meaningful contact maintained Preparation: Sterile Prep, Sterile Dressing Position: Supine Catheter: Indwelling Needle Types: Pajunk Needle Gauge: 18 Ultrasound used to visualize needle placement: Yes Ultrasound used to observe medication spread: Yes Injectate: 0.5% Ropivacaine (see comment for volume) (15 ml +10 ml NS) Blood Aspirated: No Pain Paresthesia on Injection Noted: No Resistance on Injection: Normal Image Stored and Saved: Yes Events: Uneventful and Well Tolerated
[2022-03-20] MEDS ORDERED: ROPIVACAINE 0.2%-NS ON-Q PUMP 1,090 MG, EMPTY PAIN BALL 1 EACH MISCELLANE PRN (09:38)
--- NOTE | 2022-03-20 09:38 | P.ANPRN ---
Procedure Note - Anesthesia - Nerve Block Performed Right iPack Single Time Out Performed: Yes Date of Procedure: 03/20/22 Procedure Start Time: : Procedure Stop Time: :32 Location of Patient: PreOp Indication: Requested by Surgeon Sedation Type: Sedate with meaningful contact maintained Preparation: Sterile Prep Position: Left Lateral Needle Types: Pajunk Needle Gauge: 21 Ultrasound used to visualize needle placement: Yes Ultrasound used to observe medication spread: Yes Injectate: 0.5% Ropivacaine (see comment for volume) (15 ml + 10 ml NS) Blood Aspirated: No Pain Paresthesia on Injection Noted: No Resistance on Injection: Normal Image Stored and Saved: Yes Events: Uneventful and Well Tolerated
[2022-03-20] MEDS ORDERED: PROPOFOL 10 MG/ML 20 ML VIAL IV ONE (09:40)
[2022-03-20] MEDS ORDERED: ROPIVACAINE 5 MG/ML 30 ML VIAL ONE (09:40)
[2022-03-20] MEDS ORDERED: KETAMINE 10 MG/ML 20 ML VIAL ONE (09:40)
[2022-03-20] MEDS ORDERED: HYDROmorphone (PF) 1 MG/ML ONE (09:40)
[2022-03-20] MEDS ORDERED: TRANEXAMIC ACID IN NACL,ISO-OS 1,000 MG/100 ML BAG ONE (09:40)
[2022-03-20] MEDS ORDERED: fentaNYL (PF) 50 MCG/ML 2 ML AMP ONE (09:40)
[2022-03-20] MEDS ORDERED: SODIUM CHLORIDE 0.9% (PF) 10 ML VIAL ONE (09:40)
[2022-03-20] MEDS ORDERED: MIDAZOLAM 2 MG/2 ML VIAL ONE (09:40)
[2022-03-20] MEDS ORDERED: LABETALOL 5 MG/ML VIAL MDV ONE (09:40)
[2022-03-20] MEDS ORDERED: GLYCOPYRROLATE 0.2 MG/ML 2 ML VIAL ONE (09:40)
[2022-03-20] MEDS ORDERED: ceFAZolin 1,000 MG in SODIUM CHLORIDE 0.9% 1,000 ML IRRIGATION ONE (10:14)
[2022-03-20] MEDS ORDERED: HYDROcodone/APAP 5-325MG 1 EACH TAB PO PRN (11:45)
[2022-03-20] MEDS ORDERED: HYDROmorphone 0.5 MG/0.5 ML SYRINGE IVP PRN ×3 (11:45)
[2022-03-20] MEDS ORDERED: ONDANSETRON 4 MG/2 ML VIAL IVP PRN (11:45)
[2022-03-20] MEDS ORDERED: NALOXONE 0.4 MG/ML 1 ML VIAL IV PRN (11:45)
--- NOTE | 2022-03-20 11:45 | P.OP ---
Date of Procedure: 03/20/22 Preoperative Diagnosis: Right knee osteoarthritis Postoperative Diagnosis: Right knee osteoarthritis Procedure(s) Performed: Right total knee arthroplasty Implants: 1. Depuy attune size 5 right cruciate retaining cemented femur 2. Depuy attune size 5 fixed bearing cemented tibial baseplate 3. Depuy attune size 5 fixed bearing cruciate retaining 5 mm polyethylene tibial insert 4. Depuy attune 35mm all polyethylene cemented patella Anesthesia: regional (Adductor canal catheter, Ipack block), spinal Surgeon: Dixon Regalado Mail Sorting Supervisor #1: Tavares Cueva Estimated Blood Loss (ml): 70 Pathology: none sent (Bone) Condition: stable Disposition: PACU Indications for Procedure: 72-year-old patient seen with symptomatic right knee osteoarthritis. After treatment options were discussed with her, she elected to proceed with total knee arthroplasty. Operative Findings: See description of procedure Description of Procedure: Patient was taken to the operative suite after having an adductor canal catheter placed by the department of anesthesia. Patient underwent a spinal anesthetic by the department of anesthesia. Patient was given preoperative IV intake antibiotics and TXA. A well-padded tourniquet was placed about the right lower extremity. The lower extremity was then prepped and draped in the normal sterile orthopedic fashion. The extremity was elevated, a tourniquet was insufflated to 300. A standard anterior incision was made sharply through skin. Dissection was taken down through the subcutaneous soft tissues down to the extensor mechanism. A medial arthrotomy was performed, patella was everted and knee was flexed. There was advanced osteoarthritis noted. I introduced my distal intramedullary femoral drill. I then introduced the distal femoral cutting jig. Govind SHAFFER secured the cutting jig with 2 pins. I held retractors in position while Govind SHAFFER performed the distal femoral resection through the guide area we now removed her distal femoral cutting guide. We now placed our 4-in-1 femoral cutting block and positioned and it was secured with 2 pins by Govind SHAFFER while I held the block in position. The distal femoral finishing was now completed. A proximal tibial cutting guide was positioned. I held the guide in the appropriate position with both hands well Govind SHAFFER inserted stabilizing pins into the guide. Proximal tibial cut was made. We now placed a trial femoral component into position, along with an appropriate size tibial tray and insert. We now took the knee through range of motion and had full extension good flexion and good overall soft tissue balance noted. The patella was everted and stabilized with 2 towel clips held by Govind SHAFFER while I performed a flush with patellar quad tendon utilizing a fresh sawblade. We templated the patella, appropriate drill holes were made. An appropriate trial patella was positioned, knee was taken through full range of motion with the patella tracking very nicely. The trial patella was removed. Drill holes were made through the femoral component. All trial components were removed after marking off the appropriate rotation of the tibia. Retractors were now positioned along the proximal tibia. An appropriate keel punch was made with the appropriate size tibial guide by myself on Govind SHAFFER assisted by holding retractors. At this point appropriate size implants were chosen and opened. The joint was irrigated copiously with pulse lavage mechanical irrigation. The wound was irrigated with pulse lavage mechanical irrigation. We mixed antibiotic methylmethacrylate. We placed the knee into flexion. We placed multiple retractors assisted by Govind SHAFFER to expose the proximal tibia. Once the methyl methacrylate was ready, the tibial component was cemented into place removing any excess methylmethacrylate form by both myself and Govind SHAFFER. The femoral component was cemented into place removing the removing any excess methylmethacrylate performed by both myself and Govind SHAFFER. We then inserted the appropriate size polyethylene tibial insert. We made sure that it was locked into position. We took the knee into full extension, and then back in a flexion making sure we had removed any excess methylmethacrylate. The patellar component was then cemented down and secured with clamp. Excess methylmethacrylate removed. We kept the knee in full extension, patellar clamp in position until methylmethacrylate had hardened. Once it had hardened the patellar clamp was removed. The knee was taken through full range of motion. The patella tracked nicely. There was good soft tissue balancing. The tourniquet was now released. Additional hemostasis was achieved via electrocautery. A second gram of TXA was given. The wound again was irrigated with pulse lavage mechanical irrigation. The extensor mechanism was repaired with Ethibond suture. We checked the repair with range of motion and it was stable. The subcutaneous soft tissues were repaired with Vicryl in layers. The skin was approximated with pernio/Dermabond. Sterile dressings were applied followed by loose web roll and Loyd bandage. The patient was transferred to a bed, and taken to recovery in stable and satisfactory condition. Govind SHAFFER assisted with this complex procedure.
--- NOTE | 2022-03-20 12:40 | XR ---
EXAMINATION TYPE: XR knee limited RT DATE OF EXAM: 03/20/2022 12:32 PM INDICATION: Patient age:Female; 72 years old; Reason for study: Evaluation for Postop abnormality and alignment; PHH. COMPARISON: None TECHNIQUE: The Right knee(s) was examined in frontal and lateral projections. FINDINGS: Post surgical changes from right total knee arthroplasty with distal femoral and proximal tibial components. Hardware appears intact with appropriate alignment. There is associated soft tiss ue gas and edema. Midline anterior skin jose identified. No acute fracture or dislocation. IMPRESSION: Postsurgical changes from right total knee arthroplasty. Hardware appears intact with appropriate ali gnment.
[2022-03-20] MEDS: SODIUM CHLORIDE 0.9% 1,000 ML IV SCH (15:29)
[2022-03-20] MEDS ORDERED: SENNOSIDES-DOCUSATE SODIUM 1 EACH TAB PO SCH (21:00)
[2022-03-20] MEDS: HYDROcodone/APAP 7.5-325MG 1 EACH TAB PO PRN (21:26)
[2022-03-20] MEDS ORDERED: VANCOMYCIN 1,500 MG in SODIUM CHLORIDE 0.9% 500 ML 500 ML IVPB ONE (21:30)
[2022-03-21 02:17] VITALS: RESP 16
[2022-03-21] MEDS ORDERED: ENOXAPARIN 30 MG/0.3 ML SYRINGE SQ SCH (06:00)
--- NOTE | 2022-03-21 07:13 | P.PN ---
Progress Note - Text Progress Note Date: 03/21/22 Postoperative day # 1 status post total knee arthroplasty, and adductor canal catheter placed for postoperative analgesia, currently at ropivacaine 0.2% 8 mL per hour and continuous infusion, visual analogue scale is 3/10, patient using oral pain medication for breakthrough pain. Assessment and plan= Acute postoperative pain, adductor canal catheter for pain control, pain is well controlled we'll continue the same management.
[2022-03-21 08:09] VITALS: BP 129/67; PULSE 81; TEMP 98.9
[2022-03-21] MEDS: HYDROcodone/APAP 7.5-325MG 1 EACH TAB PO PRN (09:11)
[2022-03-21] MEDS: SODIUM CHLORIDE 0.9% 1,000 ML IV SCH (09:14)
--- NOTE | 2022-03-21 10:04 | P.PN ---
Subjective Progress Note Date: 03/21/22 Principal diagnosis: Status post right total knee arthroplasty Patient evaluated at bedside, she is resting comfortably. She's ambulated very well with physical therapy. Her pain is well-controlled. She is urinating with no difficulties. She denies headaches, lightheadedness, chest pain or shortness of breath Objective - Vital Signs Vital signs: Vital Signs Temp 98.9 F 03/21/22 08:00 Pulse 81 03/21/22 08:00 Resp 16 03/21/22 08:23 BP 129/67 03/21/22 08:00 Pulse Ox 90 L 03/21/22 08:00 FiO2 Intake & Output 03/20/22 03/21/22 03/21/22 18:59 06:59 18:59 Intake Total 1701 Output Total 320 Balance 1381 Weight 94 kg Intake: IV 1701 Output: Urine 250 Estimated Blood Loss 70 Other: Voiding Method Toilet Toilet Toilet Diaper Diaper Diaper Incontinent Incontinent Incontinent # Voids 2 # Bowel Movements 1 - Exam Right lower extremity: Incision is clean, dry, and intact. The foam dressing is in good condition. There is minimal soft tissue swelling and ecchymosis surrounding the medial and lateral aspects of the incision. Calf is soft, no tenderness with palpation. Plantar flexion, dorsiflexion, EHL, FHL are intact. Sensory exam to light touch throughout the extremity is intact, dorsal pedis pulses 2+. Assessment and Plan Assessment: Postoperative day #1 status post right total knee arthroplasty Plan: Pain control, plan for discharge home on oral medication DVT prophylaxis, aspirin 81 mg twice a day for 4 weeks Wound care instructions, this to include elevating showering Medical recommendations Home PT/OT after discharge Discharge planning: Stable for discharge home today Time with Patient: Less than 30
--- NOTE | 2022-03-21 10:07 | P.DS ---
Providers Date of admission: 03/20/2022 Expected date of discharge: 03/21/22 Attending physician: Dixon Regalado Consults: 03/20/22 11:45 Consult Physician Routine Consulting Provider: Emmanuel Benavides Reason/Comments: Medical management Do you want consulting provider notified?: Yes Primary care physician: Emmanuel Benavides Hospital Course: Date of admission: 03/20/2022 Date of discharge: 03/21/2022 Admission diagnosis: Status post right total knee arthroplasty Discharge diagnosis: Same Attending physician: Dr. Regalado Surgical procedures: Right total knee arthroplasty Brief history: Patient is a 72-year-old female with a history of progressive primary right knee osteoarthritis. At this point patient has failed conservative treatment measures and has opted to proceed with a elective right total knee arthroplasty. Hospital course: Details of patient's surgery can be found in operative report. Patient tolerated the procedure well and was subsequently transported to orthopedic floor. Patient's orthopeidc and medical care was provided daily. Patient had daily laboratory tests performed for evaluation of overall blood counts. Patient had daily physical therapy to include strengthening range of motion as well as education with walker ambulation. Patient was treated with Lovenox for their postoperative DVT prophylaxis during their inpatient stay. Patient was noted to have a relatively uneventful postoperative course. Patient reported satisfactory pain control with oral pain medications by postoperative day 0. Patient showed satisfactory progress with physical therapy. Patient moved steadily through the program and had no difficulty meeting the goals by postoperative day 1. Given patient's otherwise satisfactory course and having met physical therapy goals, plan is to discharge patient home on postoperative day 1. Discharge condition/disposition: Patient will be discharged home in stable condition. Discharge medications: Instructions are given on resumption of patient's normal daily medications per primary care recommendation, in addition patient will be prescribed [place] 7.5 mg/325 mg, aspirin 81 mg. Discharge instructions: 1. Wound care and infection precautions, keep incision dry and covered while showering, no lotions, creams, moisturizers. No soaking, tubs, pools, hottubs. Do not scrub over the incision. 2. Weight-bear as tolerated with walker / cane until follow-up. 3. Ice and elevate when necessary. Do not exceed 20 minutes per hour with ice pack. 4. Utilize compression sleeve until seen at first follow up appointment. 5. Visiting nursing care. 6. Home physical therapy including home CPM. 7. Pain meds and anticoagulants per prescription. 8. Pain medication has potential to cause constipation. Increase oral fluid and fiber intake. Contact primary care provider if you have not had a bowel movement within 48 hours after discharge 9. No anti-inflammatory medication until discussed at first post operative visit, this including Motrin, Aleve, Mobic, Diclofenac. 10. Follow up in office at 2 weeks postop with Govind Cueva PA-C/Edilson Osorio 11. Follow up with your primary care doctor 7-10 days after discharge. 12. Contact [facility] with any questions, . Procedures: Right total knee arthroplasty Patient Condition at Discharge: Good Plan - Discharge Summary Discharge Rx Participant: Yes New Discharge Prescriptions: New Aspirin [Adult Low Dose Aspirin EC] 81 mg PO BID #60 tab HYDROcodone/APAP 7.5-325MG [[place] 7.5] 1 each PO Q4HR PRN #42 tab PRN Reason: Pain No Action Simvastatin [Zocor] 20 mg PO HS Citalopram Hydrobromide [CeleXA] 20 mg PO QAM lisinopriL [Prinivil] 20 mg PO QAM Vit A/Vit C/Vit E/Zinc/Copper [ICAPS SOFTGEL] 1 cap PO BID Aspirin [Adult Low Dose Aspirin EC] 81 mg PO HS Discharge Medication List Citalopram Hydrobromide [CeleXA] 20 mg PO QAM 06/04/14 [History] Simvastatin [Zocor] 20 mg PO HS 06/04/14 [History] lisinopriL [Prinivil] 20 mg PO QAM 06/04/14 [History] Aspirin [Adult Low Dose Aspirin EC] 81 mg PO HS 03/01/16 [History] Vit A/Vit C/Vit E/Zinc/Copper [ICAPS SOFTGEL] 1 cap PO BID 03/01/16 [History] Aspirin [Adult Low Dose Aspirin EC] 81 mg PO BID #60 tab 03/21/22 [Rx] HYDROcodone/APAP 7.5-325MG [[place] 7.5] 1 each PO Q4HR PRN #42 tab 03/21/22 [Rx] Follow up Appointment(s)/Referral(s): Tavares Cueva PAC [PHYSICIAN LEAD GENERATOR] - 2 Weeks Patient Instructions/Handouts: Knee Replacement (DC) Activity/Diet/Wound Care/Special Instructions: Orthopedic Discharge Instructions: 1. Wound care and infection precautions, keep incision dry and covered while showering, no lotions, creams, moisturizers. No soaking, pools, hot tubs. Do not scrub over incision. 2. Weight-bear as tolerated with walker / cane until follow-up. 3. Ice and elevate when necessary. Do not exceed 20 minutes per hour with ice pack. 4. Utilize compression sleeve until seen at first follow up appointment. 5. Pain meds and anticoagulants per prescription. 6. Pain medication has potential to cause constipation. Increase oral fluid and fiber intake. Contact primary care provider if you have not had a bowel movement within 48 hours after discharge. 7. No anti-inflammatory medication until discussed at first post operative visit, this including Motrin, Aleve, Mobic, Diclofenac, Aspirin. 8. Follow up in office at 2 weeks postop with Govind Cueva PA-C / Edilson Oreilly PA-C 9. Follow up with your primary care doctor 7-10 days after discharge. 10. Contact [facility] with any questions, . keep incision clean, dry, intact. While showering, cover silver foam dressing with Saran wrap. Silver foam dressing may be removed in 7 days, 03/27/2022. Discharge Disposition: HOME WITH HOME HEALTH SERVICES
[2022-03-21 10:55] LABS: Basophils # (A) 0.01 X 10*3/uL (0.00-0.10); Basophils % (A) 0.1 %; Eosinophils # (A) 0 X 10*3/uL (0.04-0.35); Eosinophils % (A) 0 %; HCT 35.1 % (37.2-46.3); HGB 11.1 g/dL (12.0-15.0); Immature Grans, Automated 0.3 %; Lymphocytes # (A) 0.85 X 10*3/uL (0.90-5.00); Lymphocytes % (A) 8.7 %; MCH 30.4 pg (27.0-32.0); MCHC 31.6 g/dL (32.0-37.0); MCV 96.2 fL (80.0-97.0); Mean Platelet Volume 10.6 fL (9.5-12.2); Monocytes # (A) 0.77 X 10*3/uL (0.20-1.00); Monocytes % (A) 7.9 %; NRBC Per 100 WBC 0 /100 WBCS (0.0-0.0); Neutrophils # (A) 8.12 X 10*3/uL (1.80-7.70); Platelet Count 217 X 10*3/uL (140-440); RBC 3.65 X 10*6/uL (4.10-5.20); RDW 12.3 % (11.5-14.5); WBC 9.78 X 10*3/uL (4.50-10.00)
--- NOTE | 2022-03-21 11:05 | P.CONS ---
History of Present Illness - Reason for Consult Consult date: 03/21/22 Medical management of hypertension Requesting physician: Dixon Regalado - Chief Complaint Progressive right knee osteoarthris,S/P right total knee arthroplasty - History of Present Illness This is a pleasant 72-year-old female with past medical history of progressive right knee osteoarthritis, failed conservative treatment status post elective right total knee arthroplasty. Tolerated procedure well. Pain controlled. Nausea with emesis 1 early a.m., subsided. Consumed breakfast, tolerated well with no further nausea vomiting or diarrhea. Positive hiccups. Denies abdominal pain. Vital signs stable. Incentive spirometer [id number], maintaining O2 sats in the 90s on room air. Afebrile. Denies chest pain, palpitations or shortness of breath. Patient has been up to the bedside commode, tolerated exertion well. PT evaluation pending. Review of Systems ROS Statement: Those systems with pertinent positive or pertinent negative responses have been documented in the HPI. ROS Other: All systems not noted in ROS Statement are negative. Past Medical History Past Medical History: Hearing Disorder / Deafness, Hyperlipidemia, Hypertension, Pneumonia, Sleep Apnea/CPAP/BIPAP Additional Past Medical History / Comment(s): Heart Murmur. "Leaky bladder, wears a pad". CPAP use. Bilateral hearing aids, cold sores. History of Any Multi-Drug Resistant Organisms: MRSA Year Discovered:: 03/21/19 MDRO Source:: LT AXILLA Past Surgical History: Cholecystectomy, Orthopedic Surgery, Tonsillectomy Additional Past Surgical History / Comment(s): Torn meniscus repair left knee, right knee arthroscopy, cataract surgery w/ lens implants. Past Anesthesia/Blood Transfusion Reactions: Postoperative Nausea & Vomiting (PONV) Additional Past Anesthesia/Blood Transfusion Reaction / Comm: "Started taking Celexa 11 yrs ago when my spouse , don't think I need it anymore, talked to Dr Benavides about stopping it after I have recovered from knee surgery." Past Psychological History: Depression Smoking Status: Never smoker Past Alcohol Use History: Occasional Past Drug Use History: None Reported - Past Family History Sister(s) Family Medical History: Pulmonary Embolus Mother Family Medical History: Coronary Artery Disease (CAD) Medications and Allergies Home Medications Medication Instructions Recorded Confirmed Type Citalopram Hydrobromide [CeleXA] 20 mg PO QAM 06/04/14 03/20/22 History Simvastatin [Zocor] 20 mg PO HS 06/04/14 03/20/22 History lisinopriL [Prinivil] 20 mg PO QAM 06/04/14 03/20/22 History Aspirin [Adult Low Dose Aspirin EC] 81 mg PO HS 03/01/16 03/20/22 History Vit A/Vit C/Vit E/Zinc/Copper 1 cap PO BID 03/01/16 03/20/22 History [ICAPS SOFTGEL] Aspirin [Adult Low Dose Aspirin EC] 81 mg PO BID #60 tab 03/21/22 Rx HYDROcodone/APAP 7.5-325MG [[place] 1 each PO Q4HR PRN #42 tab 03/21/22 Rx 7.5] Allergies Allergy/AdvReac Type Severity Reaction Status Date / Time No Known Allergies Allergy Verified 03/20/22 08:52 Physical Exam Vitals: Vital Signs Temp Pulse Pulse Resp BP Pulse Ox 03/21/22 08:00 98.9 F 81 16 129/67 90 L 03/21/22 02:00 98.0 F 92 16 155/80 93 L 03/20/22 21:00 54 L 17 03/20/22 20:46 98.2 F 54 L 17 127/66 91 L 03/20/22 19:34 98.2 F 54 L 17 127/66 91 L 03/20/22 14:39 16 03/20/22 14:20 71 158/81 95 03/20/22 14:00 98.6 F 84 18 130/75 94 L 03/20/22 13:00 97.2 F L 76 16 137/78 97 03/20/22 12:45 76 16 138/83 97 03/20/22 12:31 75 16 152/86 97 03/20/22 12:16 77 16 152/86 98 03/20/22 12:00 80 16 118/90 98 03/20/22 11:51 97.2 F L 79 16 142/79 98 03/20/22 09:33 82 17 146/78 100 Intake and Output 03/20/22 03/21/22 03/21/22 22:59 06:59 14:59 Output Total 250 Balance -250 Output: Urine 250 Other: Voiding Method Toilet Diaper Incontinent # Voids 2 # Bowel Movements 1 PHYSICAL EXAM: VITAL SIGNS: As above GENERAL: Sitting up in bed, no acute distress HEENT: Conjunctivae normal. eyes normal. MMM. NECK: Supple, No JVD. No thyroid enlargement. No LNs CARDIOVASCULAR: S1, S2 regular, systolic murmur. RESPIRATION: Breath sounds diminished in the bases. No rhonchi or crackles. No bronchial breathing. ABDOMEN: Soft, nontender . No guarding. no masses palpable. No ascites, No hepatosplenomegaly.Bowel sounds heard. LEGS: Right lower extremity with ecchymosis, positive mild edema, no calf tenderness, positive DP pulse PSYCHIATRY: Alert and oriented X3, mood and affect normal. NERVOUS SYSTEM: Cranial N 2-12 grossly normal.No focal deficits. Strength and sensation grossly intact. Skin: Warm and dry, no rashes noted. Assessment and Plan Assessment: Progressive right knee osteoarthritis, failed conservative treatment, status post right total knee arthroplasty PONV in a patient with history of Hard of hearing Hypertension Hyperlipidemia Obstructive sleep apnea, uses BiPAP Depression Plan: Continue on current medication regime ,monitoring and symptomatic treatment. PPI ordered for GI prophylaxis .Aggressive pulmonary toileting with incentive spirometer reinforced. PT pending. Pain management and anticoagulation as per primary. Medically cleared for discharge. Follow-up with PCP in one week. Thank you for the consult. The impression and plan of care has been dictated as directed. : I performed a history and examination of this patient, discussed the same with the dictator. I agree with the dictator's note ,documented as a scribe. Any additional findings or plans will be noted.
[2022-03-21] MEDS ORDERED: PANTOPRAZOLE 40 MG TABLET PO STA (11:13)
[2022-03-21] MEDS ORDERED: PANTOPRAZOLE 40 MG/10 ML VIAL IVP SCH (11:15)
== END 2022-03-21 13:08 | disposition home health service (06) ==
LOC: OR 08:03 → 4SSUR 11:51 → OR 03-21 13:08
PROVIDERS: ATTEND Orthopaedic Surgery
DX: M17.11 Unilateral primary osteoarthritis, right knee (principal); G89.18 Other acute postprocedural pain; I10 Essential (primary) hypertension; E78.5 Hyperlipidemia, unspecified
CPT/HCPCS: 97161; 64999; 64448; 76942; 85025; 88300; 73560; 27447; C1776; C1713 ×2; C1751; J2250; J3370; J1100; J2405 ×2; J0690; J1650; J1170; J2795

== ENCOUNTER → 2022-05-23 | Outpatient (CLI) | payer MEDICARE ==
[2022-05-23 14:41] LABS: ALT 14 U/L (8-44); AST 22 U/L (13-35); African American GFR (CKD) 97.9 (60.0-200.0); Albumin 4.4 g/dL (3.8-4.9); Albumin/Globulin Ratio 1.93 (1.60-3.17); Alkaline Phosphatase 91 U/L (41-126); BUN/Creat Ratio 13.44 Ratio (12.00-20.00); Blood Urea Nitrogen 9.5 mg/dL (9.0-27.0); Calcium 9.7 mg/dL (8.7-10.3); Carbon Dioxide 28.3 mmol/L (20.0-27.5); Chloride 105 mmol/L (96-109); Chol/HDL Ratio 2.06 Ratio; Globulin 2.3 g/dL (1.6-3.3); Glucose 109 mg/dL (70-110); LDL Cholesterol,Calculated 54.6 mg/dL (0.0-131.0); Non-African American GFR(CKD) 84.5 (60.0-200.0); Potassium 4.8 mmol/L (3.5-5.5); Sodium 144 mmol/L (135-145); Total Protein 6.7 g/dL (6.2-8.2); VLDL Calculation 17.44 mg/dL (5.00-40.00)
== END | disposition home or self-care (01) ==
LOC: LABWHC1 08:57
PROVIDERS: ATTEND Internal Medicine Interventional Cardiology
DX: E78.2 Mixed hyperlipidemia (principal)
CPT/HCPCS: 36415; 80053; 80061

== ENCOUNTER → 2022-06-07 | Outpatient (CLI) | payer MEDICARE ==
--- NOTE | 2022-06-08 08:27 | MM ---
Reason for Exam: Screening (asymptomatic). Last screening mammogram was performed 12 month(s) ago. Patient History: Menarche at age 13. First Full-Term at age 16. Postmenopausal. 02/09/2016, Cyst Aspiration on the Left side. Maternal grandmother had breast cancer, age 78. Maternal aunt had breast cancer, age 55. Risk Values: Penny 5 year model risk: 1.2%. NCI Lifetime model risk: 2.7%. Prior Study Comparison: 07/25/2017 Bilateral Screening Mammogram, [facility]. 08/28/2018 Bilateral Screening Mammogram, [facility] 05/19/2021 Bilateral Screening Mammogram, [facility]. Tissue Density: There are scattered fibroglandular densities. Findings: Analyzed By CAD. There is no suspicious group of microcalcifications or new suspicious mass in either breast. Overall Assessment: Benign, BI-RAD 2 Management: Screening Mammogram of both breasts in 1 year. A clinical breast exam by your physician is recommended on an annual basis and results should be correlated with mammographic findings. Electronically signed and approved by: Julian Mendieta M.D. Radiologis
== END | disposition home or self-care (01) ==
LOC: RADMAMWWP 14:35
PROVIDERS: ATTEND Family Medicine
DX: Z12.31 Encounter for screening mammogram for malignant neoplasm of breast (principal); Z80.3 Family history of malignant neoplasm of breast; Z78.0 Asymptomatic menopausal state; Z98.890 Other specified postprocedural states
CPT/HCPCS: 77063; 77067

== ENCOUNTER → 2023-06-21 | Outpatient (CLI) | payer MEDICARE ==
--- NOTE | 2023-06-22 12:41 | MM ---
Reason for Exam: Screening (asymptomatic). Last mammogram was performed 1 year(s) and 1 month(s) ago. Patient History: Menarche at age 13. First Full-Term at age 16. Postmenopausal. 02/09/2016, Cyst Aspiration on the Left side. Maternal grandmother had breast cancer, age 78. Maternal aunt had breast cancer, age 55. Risk Values: Penny 5 year model risk: 1.2%. NCI Lifetime model risk: 2.5%. Prior Study Comparison: 08/28/2018 Bilateral Screening Mammogram, [facility]. 05/19/2021 Bilateral Screening Mammogram, [facility]. 06/07/2022 Bilateral MG 3D screening mammo w/cad, [facility]. Tissue Density: There are scattered fibroglandular densities. Findings: Analyzed By CAD. There is a stellate density in the outer margin of the left breast. Benign-appearing calcifications. Overall Assessment: Incomplete: need additional imaging evaluation, BI-RAD 0 Management: Special View Mammogram of the left breast. . Patient should continue monthly self-breast exams. A clinical breast exam by your physician is recommended on an annual basis. This exam should not preclude additional follow-up of suspicious palpable abnormalities. Note on Penny scores and lifetime risk: 1. A Penny score greater than 3% is considered moderate risk. If this is the case, consider specialist referral to assess eligibility for a risk reducing agent. 2. If overall lifetime risk for the development of breast cancer is 20% or higher, the patient may qualify for future screening with alternating mammogram and breast MRI. Electronically signed and approved by: Rusty Song M.D. Radiologis
== END | disposition home or self-care (01) ==
LOC: RADMAMWWP 11:18
PROVIDERS: ATTEND Family Medicine
DX: Z12.31 Encounter for screening mammogram for malignant neoplasm of breast (principal); Z80.3 Family history of malignant neoplasm of breast; Z78.0 Asymptomatic menopausal state
CPT/HCPCS: 77063; 77067

== ENCOUNTER → 2023-06-26 | Outpatient (CLI) | payer MEDICARE ==
--- NOTE | 2023-06-26 14:53 | MM ---
Reason for Exam: Additional evaluation requested from abnormal screening. Last screening mammogram was performed less than 1 month ago. Patient History: Menarche at age 13. First Full-Term at age 16. Postmenopausal. 02/09/2016, Cyst Aspiration on the Left side. Maternal grandmother had breast cancer, age 78. Maternal aunt had breast cancer, age 55. Risk Values: Penny 5 year model risk: 1.2%. NCI Lifetime model risk: 2.5%. Prior Study Comparison: 05/19/2021 Bilateral Screening Mammogram, [facility]. 06/07/2022 Bilateral MG 3D screening mammo w/cad, [facility]. 06/21/2023 Bilateral MG 3D screening mammo w/cad, [facility]. Tissue Density: Left: There are scattered fibroglandular densities. Findings: Analyzed By CAD. Benign also calcifications are redemonstrated. The question stellate density posterior outer aspect left cc view does not appear to persist on spot 3-D views. No corresponding abnormality on the 3-D lateral view. Findings suggest superimposition shadow. Given the appearance on the screening exam, progression or six-month follow-up recommended. Overall Assessment: Probably benign, BI-RAD 3 Management: Diagnostic Mammogram of the left breast in 6 months. . Results were given to the patient verbally at the time of exam. Patient should continue monthly self-breast exams. A clinical breast exam by your physician is recommended on an annual basis. This exam should not preclude additional follow-up of suspicious palpable abnormalities. Note on Penny scores and lifetime risk: 1. A Penny score greater than 3% is considered moderate risk. If this is the case, consider specialist referral to assess eligibility for a risk reducing agent. 2. If overall lifetime risk for the development of breast cancer is 20% or higher, the patient may qualify for future screening with alternating mammogram and breast MRI. Electronically signed and approved by: Aly Og M.D. Radiologist
== END | disposition home or self-care (01) ==
LOC: RADMAMWWP 14:06
PROVIDERS: ATTEND Family Medicine
DX: R92.322 Mammographic fibroglandular density, left breast (principal); Z80.3 Family history of malignant neoplasm of breast; Z78.0 Asymptomatic menopausal state
CPT/HCPCS: 77061; 77065

== ENCOUNTER → 2024-02-06 | Outpatient (CLI) | payer MEDICARE ==
--- NOTE | 2024-02-06 14:48 | MM ---
Reason for Exam: Follow-up at short interval from prior study. Last screening mammogram was performed 7 month(s) ago. Patient History: Menarche at age 13. First Full-Term at age 16. Postmenopausal. 02/09/2016, Cyst Aspiration on the Left side. Maternal grandmother had breast cancer, age 78. Maternal aunt had breast cancer, age 55. Risk Values: Penny 5 year model risk: 1.2%. NCI Lifetime model risk: 2.5%. Prior Study Comparison: 06/07/2022 Bilateral MG 3D screening mammo w/cad, [facility]. 06/21/2023 Bilateral MG 3D screening mammo w/cad, [facility]. 06/26/2023 Left MG 3D work up w/cad , [facility]. Tissue Density: Left: There are scattered areas of fibroglandular density. Findings: Analyzed By CAD. The pattern is stable. Previous nodularity in the outer left breast not identified on current examination. No underlying architectural distortion spiculated or lobulated mass is evident. Benign calcifications are present. Overall Assessment: Benign, BI-RAD 2 Management: Screening Mammogram of both breasts in 6 months. A negative mammogram report should not preclude additional follow up of suspicious palpable abnormalities. Patient should continue monthly self breast exam. A clinical breast exam by your physician is recommended on an annual basis and results should be correlated with mammographic findings. Note on Penny scores and lifetime risk: 1. A Penny score greater than 3% is considered moderate risk. If this is the case, consider specialist referral to assess eligibility for a risk reducing agent. 2. If overall lifetime risk for the development of breast cancer is 20% or higher, the patient may qualify for future screening with alternating mammogram and breast MRI. [facility], , 02/06/2024 2:46 PM. Electronically signed and approved by: Lopez Gay D.O. Radiologis
== END | disposition home or self-care (01) ==
LOC: RADMAMWWP 14:20
PROVIDERS: ATTEND Family Medicine
DX: R92.8 Other abnormal and inconclusive findings on diagnostic imaging of breast
CPT/HCPCS: 77061; 77065

== ENCOUNTER → 2024-05-19 | Outpatient (CLI) | payer MEDICARE ==
[2024-05-19 15:48] LABS: ALT 14 U/L (8-44); AST 24 U/L (13-35); Albumin 4.6 g/dL (3.8-4.9); Albumin/Globulin Ratio 1.59 Ratio (1.60-3.17); Alkaline Phosphatase 106 U/L (41-126); BUN/Creat Ratio 11.22 Ratio (12.00-20.00); Blood Urea Nitrogen 10.1 mg/dL (9.0-27.0); Calcium 10.1 mg/dL (8.7-10.3); Carbon Dioxide 29.6 mmol/L (21.6-31.8); Chloride 102 mmol/L (96-109); Chol/HDL Ratio 2.08 Ratio; Globulin 2.9 g/dL (1.6-3.3); Glucose 107 mg/dL (70-110); Potassium 4.5 mmol/L (3.5-5.5); Sodium 142 mmol/L (135-145); Total Bilirubin 0.6 mg/dL (0.3-1.2); Total Protein 7.5 g/dL (6.2-8.2)
== END | disposition home or self-care (01) ==
LOC: LABWHC1 10:28
PROVIDERS: ATTEND Internal Medicine Interventional Cardiology
DX: I10 Essential (primary) hypertension (principal); E78.2 Mixed hyperlipidemia
CPT/HCPCS: 36415; 80053; 80061